=== PATIENT | male | born 1960 | race Native Hawaiian/Other Pacific Islander ===

== ENCOUNTER 2018-05-31 09:41 | Outpatient (CLI) | payer BC | END 2018-05-31 19:11 | disposition home or self-care (01) | LOC: RAD 09:41 | DX: J20.8 Acute bronchitis due to other specified organisms (principal) ==

== ENCOUNTER 2020-06-05 09:49 | Outpatient (CLI) | payer BC | END 2020-06-05 20:53 | disposition home or self-care (01) | LOC: US 09:49 | PROVIDERS: ATTEND Nurse Practitioner | DX: R10.31 Right lower quadrant pain (principal) ==